=== PATIENT | female | born 1970 | race African-American/Black ===

== ENCOUNTER → 2018-12-10 | Outpatient (CLI) | payer OTHER ==
--- NOTE | 2018-12-10 16:55 | RADIOLOGY REPORT (SQ) ---
EXAM DESCRIPTION: RIBS LEFT W/PA CHEST COMPLETED DATE/TIME: 12/10/2018 2:37 pm REASON FOR STUDY: LEFT RIB PAIN R07.81 PLEURODYNIA COMPARISON: None. TECHNIQUE: Frontal view of the chest and additional views of the left ribs acquired. NUMBER OF VIEWS: Five view. LIMITATIONS: None. FINDINGS: FRONTAL CXR: No pneumothorax. No pleural effusion. No atelectasis or infiltrates. RIBS: No displaced rib fractures. No lytic or blastic bony lesions. OTHER: No other significant finding. IMPRESSION: NO PNEUMOTHORAX. NO DISPLACED RIB FRACTURES. COMMENT: SITE OF TRAUMA/COMPLAINT MARKED/STAMP COMPLETED: NO. TECHNICAL DOCUMENTATION: JOB ID: [id number] [employer]- All Rights Reserved Reading location - IP/workstation name: [email or web address]
== END ==
LOC: RAD 14:04
PROVIDERS: ATTEND Family Medicine Geriatric Medicine
DX: R07.81 Pleurodynia (principal)

== ENCOUNTER 2018-12-25 15:24 | Emergency (ER) | payer OTHER ==
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
[2018-12-25 16:33] LABS: ABSOLUTE EOSINOPHILS # (AUTO) 0.2 10^3/uL (0.0-0.6); ABSOLUTE LYMPHOCYTES (AUTO) 1.8 10^3/uL (0.5-4.7); ABSOLUTE MONOCYTES (AUTO) 0.3 10^3/uL (0.1-1.4); ABSOLUTE NEUT (AUTO) 2.1 10^3/uL (1.7-8.2); BASOPHILS % (AUTO) 0.7 % (0-2); EOSINOPHILS % (AUTO) 4.7 % (0-6); HEMATOCRIT 38.6 % (36.0-47.0); HEMOGLOBIN 12.4 g/dL (12.0-15.5); LYMPHOCYTES % (AUTO) 40.4 % (13-45); MEAN CORPUSCULAR HGB CONC 32.1 g/dL (32.0-36.0); MEAN CORPUSCULAR VOLUME 72 fl (80-97); MONOCYTES % (AUTO) 6.8 % (3-13); PLATELET COUNT 363 10^3/uL (150-450); RED BLOOD COUNT 5.39 10^6/uL (3.72-5.28); RED CELL DISTRIBUTION WIDTH 15.9 % (11.5-14.0); SEGMENTED NEUTROPHILS % (AUTO) 47.4 % (42-78); TOTAL CELLS COUNTED % (AUTO) 100 %; WHITE BLOOD COUNT 4.5 10^3/uL (4.0-10.5)
[2018-12-25 16:40] LABS: APPEARANCE,URINE SLIGHTLY-CLOUDY; BILIRUBIN,URINE NEGATIVE (NEGATIVE); COLOR,URINE YELLOW; GLUCOSE, URINE NEGATIVE (NEGATIVE); KETONES,URINE NEGATIVE (NEGATIVE); LEUKOCYTE ESTERASE,URINE NEGATIVE (NEGATIVE); NITRITE,URINE NEGATIVE (NEGATIVE); PROTEIN,URINE NEGATIVE (NEGATIVE); URINE SPECIFIC GRAVITY 1.018
[2018-12-25 16:46] LABS: ALBUMIN 4.5 g/dL (3.5-5.0); ALKALINE PHOSPHATASE 69 U/L (38-126); ANION GAP 10 (5-19); ASPARTATE AMINO TRANSFERASE 21 U/L (14-36); BILIRUBIN,DIRECT 0.2 mg/dL (0.0-0.4); BILIRUBIN,TOTAL 0.6 mg/dL (0.2-1.3); BLOOD UREA NITROGEN 13 mg/dL (7-20); CALCIUM 9.8 mg/dL (8.4-10.2); CARBON DIOXIDE 27 mmol/L (22-30); CHLORIDE 104 mmol/L (98-107); GLUCOSE 83 mg/dL (75-110); TOTAL PROTEIN 7.7 g/dL (6.3-8.2)
[2018-12-25 16:48] LABS: ACETAMINOPHEN < 10 ug/mL (10-30); ALCOHOL < 10 mg/dL (NONE DETECTED); SALICYLATE < 1.0 mg/dL (2.0-20.0)
[2018-12-25 16:55] LABS: URINE AMPHETAMINES SCREEN NEGATIVE; URINE BARBITURATES SCREEN NEGATIVE; URINE BENZODIAZEPINES SCREEN NEGATIVE; URINE COCAINE SCREEN NEGATIVE; URINE MARIJUANA (THC) SCREEN NEGATIVE; URINE METHADONE SCREEN NEGATIVE; URINE PHENCYCLIDINE SCREEN NEGATIVE
[2018-12-25] MEDS ORDERED: HYDROXYZINE PAMOATE 25 MG CAPSULE PO PRN (17:24)
--- NOTE | 2018-12-25 17:37 | EKG REPORT ---
SEVERITY:- BORDERLINE ECG - SINUS RHYTHM PROBABLE LEFT ATRIAL ABNORMALITY : Confirmed by: Leo Duffy MD 25-Dec-2018 17:37:03
[2018-12-25] MEDS ORDERED: ACETAMINOPHEN 325 MG TABLET PO ONE (18:29)
[2018-12-25] MEDS: CLONIDINE HCL 0.1 MG TABLET PO SCH (22:26)
--- NOTE | 2018-12-26 09:42 | ER Document Report ---
Doctor's Note Notes: 12/26/18 09:40 Patient seen and examined, vital signs reviewed, chart reviewed, patient presented with depressive thoughts and suicidal thoughts, denies this last Sunday, states that she would prefer not to be inpatient, stating she does have a counselor, but they are in [place] [facility], she would like her care to be transferred to [place], she reports having appointment in January with ELINA GARCÍA. I discussed this case with the behavioral health team, they feel the patient would likely benefit from placement, due to her initial presentation, tearfulness, and opening up to the behavioral health team. I discussed at length with the patient, that she would likely benefit from inpatient, at this time she is very hesitant at this idea. Patient is agreeable to stay overnight, see home medications help her, will be reevaluated tomorrow.
[2018-12-26] MEDS: FLUOXETINE HCL 20 MG CAPSULE PO SCH (10:06)
[2018-12-26] MEDS: BUPROPION HCL 75 MG TABLET PO SCH (10:06)
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
[2018-12-26] MEDS ORDERED: ACETAMINOPHEN 325 MG TABLET PO ONE (14:54)
[2018-12-27] MEDS: CLONIDINE HCL 0.1 MG TABLET PO SCH (07:02)
[2018-12-27] MEDS: FLUOXETINE HCL 20 MG CAPSULE PO SCH (09:46)
[2018-12-27] MEDS: BUPROPION HCL 75 MG TABLET PO SCH (09:46)
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
--- NOTE | 2018-12-27 15:16 | ER Document Report ---
Doctor's Note Notes: 12/27/18 15:15 Patient seen and examined, vital signs reviewed, case discussed with the behavioral health team, patient's been stable on medication she was started on, we will wean her off of Wellbutrin, and start her on Effexor and have her follow-up with the [place] clinic in [place], patient is agreeable with plan of care, no longer suicidal or having suicidal thoughts or homicidal thoughts, no active delusions or hallucinations at this time and I feel she is stable to be discharged. Will provide 2 weeks with her prescriptions.
[2018-12-27 17:52] VITALS: BP 115/69
== END 2018-12-27 16:43 | disposition home or self-care (01) ==
LOC: ER 15:24
DX: R45.851 Suicidal ideations (principal); F32.9 Major depressive disorder, single episode, unspecified; F43.10 Post-traumatic stress disorder, unspecified
CPT/HCPCS: 36415; 80053; 80307; 81001; 85025; 93005; 93010; 99285

== ENCOUNTER → 2019-04-16 | Outpatient (CLI) | payer OTHER ==
[2019-04-16 09:19] LABS: ANION GAP 7 (5-19); BLOOD UREA NITROGEN 11 mg/dL (7-20); CALCIUM 9.4 mg/dL (8.4-10.2); CARBON DIOXIDE 27 mmol/L (22-30); CHLORIDE 106 mmol/L (98-107); CHOLESTEROL 222.45 mg/dL (0-200); GLUCOSE 88 mg/dL (75-110); POTASSIUM 4.4 mmol/L (3.6-5.0); TRIGLYCERIDES 39 mg/dL (<150)
[2019-04-16 09:29] LABS: DIRECT LDL 107 mg/dL (<100)
--- NOTE | 2019-04-16 12:20 | RADIOLOGY REPORT (SQ) ---
EXAM DESCRIPTION: FOOT BILATERAL 3 VIEWS COMPLETED DATE/TIME: 04/16/2019 8:13 am REASON FOR STUDY: PAIN IN UNSPECIFIED ANKLE AND JOINTS OF UNSPECIFIED FOOT E78.5 HYPERLIPIDEMIA, UN SPECIFIED M25.561 PAIN IN RIGHT KNEE M25.579 PAIN IN UNSPECIFIED ANKLE AND JOINTS OF UNSPECIFIED COMPARISON: None. NUMBER OF VIEWS: Three views. TECHNIQUE: AP, lateral and oblique radiographic images acquired of the right and left foot. LIMITATIONS: None. FINDINGS: MINERALIZATION: Normal. BONES: No acute fracture or dislocation. No worrisome bone lesions. JOINTS: No effusions. SOFT TISSUES: No soft tissue swelling. No foreign body. OTHER: No other significant finding. IMPRESSION: NEGATIVE STUDY OF THE RIGHT AND LEFT FEET. NO RADIOGRAPHIC EVIDENCE OF ACUTE INJURY. TECHNICAL DOCUMENTATION: JOB ID: [id number] [employer]- All Rights Reserved Reading location - IP/workstation name: [email or web address]
--- NOTE | 2019-04-16 12:22 | RADIOLOGY REPORT (SQ) ---
EXAM DESCRIPTION: KNEE RIGHT 4 VIEWS COMPLETED DATE/TIME: 04/16/2019 8:13 am REASON FOR STUDY: PAIN IN RIGHT KNEE E78.5 HYPERLIPIDEMIA, UNSPECIFIED M25.561 PAIN IN RIGHT KNEE M25.579 PAIN IN UNSPECIFIED ANKLE AND JOINTS OF UNSPECIFIED COMPARISON: None. NUMBER OF VIEWS: Four views. TECHNIQUE: AP, lateral, and both oblique radiographic images acquired of the right knee. LIMITATIONS: None. FINDINGS: MINERALIZATION: Normal. BONES: Bipartite patella. No acute findings. JOINT: No effusion. SOFT TISSUES: No soft tissue swelling. No radio-opaque foreign body. OTHER: No other significant finding. IMPRESSION: NEGATIVE STUDY OF THE RIGHT KNEE. NO RADIOGRAPHIC EVIDENCE OF ACUTE INJURY. TECHNICAL DOCUMENTATION: JOB ID: [id number] 1934 [employer]- All Rights Reserved Reading location - IP/workstation name: [email or web address]
--- NOTE | 2019-04-16 12:22 | RADIOLOGY REPORT (SQ) ---
EXAM DESCRIPTION: ANKLE BILATERAL 3 VIEWS MIN COMPLETED DATE/TIME: 04/16/2019 8:13 am REASON FOR STUDY: PAIN IN UNSPECIFIED ANKLE AND JOINTS OF UNSPECIFIED FOOT E78.5 HYPERLIPIDEMIA, UN SPECIFIED M25.561 PAIN IN RIGHT KNEE M25.579 PAIN IN UNSPECIFIED ANKLE AND JOINTS OF UNSPECIFIED COMPARISON: None. NUMBER OF VIEWS: Three views. TECHNIQUE: AP, lateral, and oblique radiographic images acquired of the right and left ankle. LIMITATIONS: None. FINDINGS: MINERALIZATION: Normal. BONES: No acute fracture or dislocation. No worrisome bone lesions. JOINTS: No effusions. SOFT TISSUES: No soft tissue swelling. No foreign body. OTHER: No other significant finding. IMPRESSION: NO RADIOGRAPHIC EVIDENCE OF ACUTE INJURY OF THE RIGHT AND LEFT ANKLES. TECHNICAL DOCUMENTATION: JOB ID: [id number] [employer]- All Rights Reserved Reading location - IP/workstation name: [email or web address]
--- NOTE | 2019-04-16 12:23 | RADIOLOGY REPORT (SQ) ---
EXAM DESCRIPTION: KNEE LEFT 4 VIEWS COMPLETED DATE/TIME: 04/16/2019 8:13 am REASON FOR STUDY: CHRONIC AARON KNEE PAIN E78.5 HYPERLIPIDEMIA, UNSPECIFIED M25.561 PAIN IN RIGHT KN EE M25.579 PAIN IN UNSPECIFIED ANKLE AND JOINTS OF UNSPECIFIED COMPARISON: None. NUMBER OF VIEWS: Four views. TECHNIQUE: AP, lateral, and both oblique radiographic images acquired of the left knee. LIMITATIONS: None. FINDINGS: MINERALIZATION: Normal. BONES: No acute fracture or dislocation. No worrisome bone lesions. JOINT: No effusion. SOFT TISSUES: No soft tissue swelling. No radio-opaque foreign body. OTHER: No other significant finding. IMPRESSION: NEGATIVE STUDY OF THE LEFT KNEE. NO RADIOGRAPHIC EVIDENCE OF ACUTE INJURY. TECHNICAL DOCUMENTATION: JOB ID: [id number] [employer]- All Rights Reserved Reading location - IP/workstation name: [email or web address]
== END ==
LOC: OD 07:35
PROVIDERS: ATTEND Family Medicine Geriatric Medicine
DX: E78.5 Hyperlipidemia, unspecified (principal); M25.561 Pain in right knee; M25.579 Pain in unspecified ankle and joints of unspecified foot; M25.571 Pain in right ankle and joints of right foot; M25.572 Pain in left ankle and joints of left foot
CPT/HCPCS: 36415; 80048; 80061; 84460; 84550